=== PATIENT | male | born 1930 | race Caucasian/White ===

== ENCOUNTER → 2018-09-19 | Outpatient (CLI) | payer MEDICARE, OTHER ==
[~2018-09-19] MED LIST: AMIODARONE HCL200 MG; ATORVASTATIN CA20 MG PO; CLOPIDOGREL75 MG PO; GLIPIZIDE5 MG PO; LOSARTAN-HCTZ1 EAC2 PO; LYRICA75 MG; METOPROLOL TART50 MG PO; PACERONE400 MG; PACERONE400 MG PO; PANTOPRAZOLE SO40 MG PO; RANITIDINE HCL PO; ZANTAC PO
--- NOTE | 2018-09-19 10:22 | Diagnostic Imaging Report ---
TECHNIQUE: Magnetic resonance imaging of the RIGHT SHOULDER was performed WITHOUT injected contrast. COMPARISON: None available. HISTORY: Right shoulder pain FINDINGS: MUSCLES AND TENDONS: Rotator Cuff: Tendons: Rotator cuff tendinopathy with complex rotator cuff tear including partial-thickness articular sided tearing of the supraspinatus and infraspinatus with retraction of the deep fibers approximately 3 cm on coronal image 15. Focal bursal surface tear of the conjoined fibers at the humeral insertion coronal image 14. Muscles: Mild generalized atrophy. Biceps Tendon: The long head of the biceps tendon is within the bicipital groove. Intra-articular tendinosis. GLENOHUMERAL JOINT: Glenoid Labrum: Degenerative labral tearing. Articular Cartilage: No focal defect. AC JOINT AND ACROMION: Mild hypertrophic degenerative changes of the acromioclavicular joint. Subacromial spurring. BONE: Scattered cystic change in the humeral head. No acute fracture. SOFT TISSUES: Subacromial subdeltoid bursal fluid. IMPRESSION: Rotator cuff tendinopathy with partial-thickness articular and bursal sided tearing of the supraspinatus and infraspinatus with retraction of the deep fibers. No focal atrophy. Subacromial spurring. Signed by: Dr. Gurjit Scott M.D. on 09/19/2018 10:18 AM
== END ==
LOC: MRI 08:32
PROVIDERS: ATTEND Internal Medicine
DX: M25.511 Pain in right shoulder (principal)